=== PATIENT | male | born 1995 | race Caucasian/White ===

== ENCOUNTER → 2017-02-03 | Emergency (ER) | payer BC, OTHER ==
[~2017-02-03] VITALS: Ht 175.3 cm; Wt 117.9 kg
[~2017-02-03] MED LIST: TETANUS,DIPTH,PERTUSS P/F (BOOSTRIX) 0.5 ML VIAL IM STA
--- OUTSIDE RECORDS SUMMARY | 2017-02-03 20:31 | XMS REPORT ---
Author Author Juwan Haro [facility] Address [address] [place], [place] [id number] Care Team Providers Care Appeals Court Associate Justice Name Role Phone Juwan Haro PCP Unavailable Allergies and Adverse Reactions Name Reaction Notes NO KNOWN DRUG ALLERGIES Plan of Treatment Not available. Medications Active Name Start Date Estimated Completion Date SIG Comments Adderall XR 25 mg oral capsule,extended release 24hr 04/23/2015 05/23/2015 take 1 capsule (25 mg) by oral route once daily in the morning upon awakening for 30 days Name Start Date Expiration Date SIG Comments Ashley 180 mg oral tablet 05/13/2009 05/08/2010 take 1 tablet (180 mg) by oral route once daily for 30 days Zithromax Z-Guru 250 mg oral tablet 07/10/2010 07/20/2010 take 2 tablets (500 mg ) by oral route once daily for 1 day then 1 tablet (250 mg) by oral route once daily for 4 days Medrol (Guru) 4 mg oral tablets,dose pack 07/07/2011 07/19/2011 take as directed for 6 days Levaquin 500 mg oral tablet 07/07/2011 07/14/2011 take 1 tablet (500 mg) by oral route once daily for 7 days Lamisil 250 mg oral tablet 08/06/2011 08/20/2011 take 1 tablet by oral route daily for 14 days Bactrim DS 800-160 mg oral tablet 09/22/2012 09/29/2012 take 1 tablet by oral route 2 times a day for 7 days Discontinued Name Start Date Discontinued Date SIG Comments Ashley-D 12 Hour 60-120 mg oral tablet extended release 12 hr 05/13/20092009 take 1 tablet by oral route 2 times per day for 30 days Tessalon Perles 100 mg oral capsule 05/13/2009 05/13/2009 take 1 capsule (100 mg ) by oral route 3 times per day Rondec DM 4-45-15 mg/5 mL oral syrup 05/13/2009 10/31/2013 take 5 milliliters by oral route 4 times a day as needed Lotrisone 1-0.05 % topical cream 10/31/2013 apply to the affected and surrounding areas of skin by topical route 2 times per day in the morning and evening x 7days Problem List Description Status Onset Attention deficit disorder Active 04/20/2011 Vital Signs Date Time BP-Sys(mm[Hg] BP-Ermelinda(mm[Hg]) HR(bpm) RR(rpm) Temp WT HT HC BMI BSA BMI Percentile O2 Sat(%) 04/23/2015 4:09:00 PM 122 mmHg 88 mmHg 78 bpm 18 rpm 97.7 F 263 lbs 70.5 in 37.20 kg/m2 2.44 m2 97 % 11/26/2014 4:04:00 PM 110 mmHg 90 mmHg 57 bpm 20 rpm 97 F 269.2 lbs 70.5 in 38.0798 kg/m 2.4645 m 98 % 03/20/2014 8:50:00 AM 132 mmHg 64 mmHg 78 bpm 18 rpm 97.6 F 253.5 lbs 70.5 in 35.86 kg/m2 2.39 m2 0 % 99 % 10/31/2013 3:52:00 PM 128 mmHg 60 mmHg 78 bpm 18 rpm 98.2 F 251 lbs 70.5 in 35.5053 kg/m 2.3797 m 0 % 03/13/2013 10:55:00 AM 124 mmHg 82 mmHg 84 bpm 18 rpm 97.8 F 243 lbs 09/22/2012 4:02:00 PM 118 mmHg 74 mmHg 64 bpm 18 rpm 97.8 F 235 lbs 70.5 in 33.2421 kg/m 2.3026 m 98.1 % 04/26/2012 10:59:00 AM 110 mmHg 72 mmHg 68 bpm 18 rpm 97.4 F 226 lbs 70.5 in 31.97 kg/m2 2.26 m2 97.5 % 12/18/2011 8:42:00 AM 120 mmHg 72 mmHg 60 bpm 18 rpm 97.8 F 218 lbs 70.5 in 30.8373 kg/m 2.2178 m 96.9 % 07/07/2011 3:49:00 PM 118 mmHg 74 mmHg 82 bpm 18 rpm 98.8 F 217 lbs 69 in 32.04 kg/m2 2.19 m2 98 % 05/28/2011 4:05:00 PM 136 mmHg 84 mmHg 80 bpm 20 rpm 98.8 F 223 lbs 69 in 32.931 kg/m 2.2191 m 98.4 % 02/10/2011 3:44:00 PM 122 mmHg 70 mmHg 88 bpm 20 rpm 97.8 F 218 lbs 07/10/2010 3:46:00 PM 128 mmHg 74 mmHg 96 bpm 20 rpm 98.4 F 215 lbs 03/25/2010 3:37:00 PM 112 mmHg 70 mmHg 88 bpm 20 rpm 97 F 209 lbs 12/23/2009 9:43:00 AM 118 mmHg 68 mmHg 60 bpm 20 rpm 97 F 213 lbs 05/13/2009 10:23:00 AM 122 mmHg 80 mmHg 80 bpm 16 rpm 97.5 F 208.375 lbs 69 in 30.77 kg/m2 2.15 m2 98 % Social History Name Description Comments Single High school attendee Denies substance abuse Denies illicit substance abuse Active but no formal exercise Student Did not serve History of Procedures Date Ordered Description Order Status 12/18/2011 12:00 AM MENINGOCOCCAL VACCINE IM Reviewed Results Summary Not available. History Of Immunizations Name Date Admin Mfg Name Mfg Code Trade Name Lot# Route Inj Vis Given Vis Pub CVX Meningococcal 12/18/2011 sanofi pasteur PMC Menactra [id number] Intramuscular Left Deltoid 12/23/2011 02/20/2011 136 History of Past Illness Name Date of Onset Comments Rhinitis, Allergic May 13 2009 10:29AM Upper Respiratory Infections May 13 2009 10:29AM Attention Deficit Disorder Attention deficit disorder 04/20/2011 Attention Deficit Disorder Dec 23 2009 9:48AM Attention Deficit Disorder Mar 25 2010 3:40PM Bronchitis, Acute Jul 10 2010 3:49PM Attention Deficit Disorder Jul 10 2010 3:49PM Attention Deficit Disorder Feb 10 2011 3:43PM Atopic Dermatitis May 28 2011 4:08PM Upper Respiratory Infection Jul 07 2011 3:52PM Contact Dermatitis Jul 07 2011 3:52PM Atopic Dermatitis Aug 06 2011 1:48PM Attention Deficit Disorder Dec 18 2011 8:46AM Attention Deficit Disorder Apr 26 2012 11:02AM Ingrown Nail Sep 22 2012 4:05PM Attention Deficit Disorder Mar 13 2013 10:59AM Penile adhesion Oct 31 2013 3:56PM Attention deficit disorder Mar 20 2014 8:52AM Attention deficit disorder Nov 26 2014 4:07PM Attention deficit disorder Apr 23 2015 4:13PM Payers Insurance Name Company Name Plan Name Plan Number Policy Number Policy Group Number Start Date [employer] [place] [id number] Friday, 2005 History of Encounters Visit Date Visit Type Provider 04/23/2015 Office visit Juwan Haro MD 11/26/2014 Office visit Juwan Haro MD 03/20/2014 Office visit Juwan Haro MD 10/31/2013 Office visit Juwan Haro MD 03/13/2013 Office visit Juwan Haro MD 09/22/2012 Office visit Juwan Haro MD 04/26/2012 Office visit Juwan Haro MD 12/18/2011 Office visit Juwan Haro MD 08/06/2011 Office visit Juwan Haro MD 07/07/2011 Office visit Juwan Haro MD 05/28/2011 Office visit Juwan Haro MD 02/10/2011 Office visit Juwan Haro MD 07/10/2010 Office visit Juwan Haro MD 03/25/2010 Office visit Juwan Haro MD 12/23/2009 Office visit Juwan Haro MD 05/13/2009 Office visit Hoda Sellers MD 03/04/2009 Office visit Juwan Haro MD
--- OUTSIDE RECORDS SUMMARY | 2017-02-03 20:32 | XMS REPORT ---
Author Author Tadeo Katz [facility] Address [address] [place], [place] [id number] Care Team Providers Care Live Ammunition Inspector Name Role Phone Tadeo Katz PCP Allergies and Adverse Reactions Name Reaction Notes NO KNOWN DRUG ALLERGIES Plan of Treatment Not available. Medications Active Name Start Date Estimated Completion Date SIG Comments triamcinolone acetonide 0.5 % topical ointment 11/19/2015 apply a thin layer to the affected area(s) by topical route 2 times per day Name Start Date Expiration Date SIG Comments [...] 2 times a day for 7 days Adderall XR 25 mg oral capsule,extended release 24hr 08/23/2015 09/22/2015 take 1 capsule (25 mg) by oral route once daily in the morning upon awakening for 30 days Discontinued Name Start Date Discontinued Date SIG Comments Ashley-D 12 Hour 60-120 mg oral tablet extended release 12 hr 05/13/20092009 take 1 tablet by oral route 2 times per day for 30 days Tatyana Kimball 100 mg oral capsule 05/13/2009 05/13/2009 take 1 capsule (100 mg ) by oral route 3 times per day Praveendec DM 4-45-15 mg/5 mL oral syrup 05/13/2009 [...] HC BMI BSA BMI Percentile O2 Sat(%) 11/19/2015 5:14:00 PM 82 bpm 20 rpm 98.1 F 267 lbs 70.5 in 37.77 kg/m2 2.45 m2 98 % 04/23/2015 4:09:00 PM 122 mmHg 88 mmHg 78 bpm 18 rpm 97.7 F 263 lbs 70.5 in 37.2028 kg/m 2.436 m 97 % 11/26/2014 4:04:00 PM 110 mmHg 90 mmHg 57 bpm 20 rpm 97 F 269.2 lbs 70.5 in 38.08 kg/m2 2.46 m2 98 % 03/20/2014 8:50:00 AM 132 mmHg 64 mmHg 78 bpm 18 rpm 97.6 F 253.5 lbs 70.5 in 35.859 kg/m 2.3916 m 0 % 99 % 10/31/2013 3:52:00 PM 128 mmHg 60 mmHg 78 bpm 18 rpm 98.2 F 251 lbs 70.5 in 35.51 kg/m2 2.38 m2 0 % 03/13/2013 10:55:00 AM 124 mmHg 82 mmHg 84 bpm 18 rpm 97.8 F 243 lbs 09/22/2012 4:02:00 PM 118 mmHg 74 mmHg 64 bpm 18 rpm 97.8 F 235 lbs 70.5 in 33.24 kg/m2 2.30 m2 98.1 % 04/26/2012 10:59:00 AM 110 mmHg 72 mmHg 68 bpm 18 rpm 97.4 F 226 lbs 70.5 in 31.969 kg/m 2.2581 m 97.5 % 12/18/2011 8:42:00 AM 120 mmHg 72 mmHg 60 bpm 18 rpm 97.8 F 218 lbs 70.5 in 30.84 kg/m2 2.22 m2 96.9 % 07/07/2011 3:49:00 PM 118 mmHg 74 mmHg 82 bpm 18 rpm 98.8 F 217 lbs 69 in 32.045 kg/m 2.189 m 98 % 05/28/2011 4:05:00 PM 136 mmHg 84 mmHg 80 bpm 20 rpm 98.8 F 223 lbs 69 in 32.93 kg/m2 2.22 m2 98.4 % 02/10/2011 3:44:00 PM 122 mmHg [...] rpm 97.5 F 208.375 lbs 69 in 30.7713 kg/m 2.1451 m 98 % Social History Name Description Comments [...] CVX Meningococcal 12/18/2011 sanofi pasteur PMC Menactra [id number] Intramuscular Left Deltoid 12/23/2011 02/20/2011 136 History of Past Illness Name Date of Onset Comments Rhinitis, Allergic May 13 2009 10:29AM Upper Respiratory Infections May 13 2009 10:29AM Attention deficit disorder 04/20/2011 Attention Deficit Disorder [...] Attention deficit disorder Apr 23 2015 4:13PM Insect bites and stings, accidental or unintentional, initial encounter Nov 19 2015 5:16PM Payers Insurance Name Company Name Plan Name Plan Number Policy Number Policy Group Number Start Date BCBS [employer] [facility] [id number] Friday, 2005 History of Encounters Visit Date Visit Type Provider 11/19/2015 Office visit Tadeo Katz APRN 04/23/2015 Office visit Juwan Haro MD 11/26/2014 [...]
--- OUTSIDE RECORDS SUMMARY | 2017-02-03 20:32 | XMS REPORT ---
Author Author Juwan Haro [facility] Address [address] [place], [place] [id number] Care Team Providers Care Fluid Dynamicist Name Role Phone Juwan Haro PCP Unavailable Allergies and Adverse Reactions Name Reaction Notes NO KNOWN DRUG ALLERGIES Plan of Treatment Not available. Medications Active Name Start Date Estimated Completion Date SIG Comments triamcinolone acetonide 0.5 % topical ointment 11/19/2015 apply a thin layer to the affected area(s) by topical route 2 times per day amoxicillin 875 mg oral tablet 12/23/2015 12/30/2015 take 1 tablet (875 mg) by oral route every 12 hours for 7 days Medrol (Guru) 4 mg oral tablets,dose pack 12/23/2015 01/04/2016 take as directed for 6 days Adderall XR 25 mg oral capsule,extended release 24hr 12/23/2015 01/22/2016 take 1 capsule (25 mg) by oral [...] times per day for 30 days Tatyana Perles 100 mg oral capsule 05/13/2009 05/13/2009 [...] HC BMI BSA BMI Percentile O2 Sat(%) 12/23/2015 8:25:00 AM 130 mmHg 78 mmHg 74 bpm 18 rpm 96.6 F 257 lbs 70.5 in 36.35 kg/m2 2.41 m2 98 % 11/19/2015 5:14:00 PM 82 bpm 20 rpm 98.1 F 267 lbs 70.5 in 37.7686 kg/m 2.4544 m 98 % 04/23/2015 4:09:00 PM 122 mmHg [...] CVX Meningococcal 12/18/2011 sanofi pasteur PMC Menactra [id number] Intramuscular Left Deltoid 12/23/2011 02/20/2011 136 History [...] unintentional, initial encounter Nov 19 2015 5:16PM Atopic dermatitis Dec 23 2015 8:32AM Attention deficit disorder Dec 23 2015 8:32AM Payers Insurance Name Company Name Plan Name Plan Number Policy Number Policy Group Number Start Date BCBS [facility] [id number] Friday, 2005 History of Encounters Visit Date Visit Type Provider 12/23/2015 Office visit Juwan Haro MD 11/19/2015 Office visit Tadeo Katz APRN 04/23/2015 [...]
--- OUTSIDE RECORDS SUMMARY | 2017-02-03 20:32 | XMS REPORT | Continuity of Care Document ---
Author Author [facility] Address Unknown Phone Unavailable Allergies Medications Problems Procedures Results Encounters ACCT No. Visit Date/Time Discharge Status Pt. Type Provider Facility Loc./Unit Complaint [id number] 12/23/2015 09:25:00 12/23/2015 23: 59:59 [facility] Out[facility] Juwan Haro [id number] 11/19/2015 18:05:20 11/19/2015 23: 59:59 [facility] Outpatient Tadeo Katz [id number] 04/23/2015 16:20:06 04/23/2015 23: 59:59 [facility] Out[facility] Juwan Haro [id number] 12/17/2014 22:19:28 12/17/2014 23: 59:59 [facility] Out[facility] Juwan Haro [id number] 03/20/2014 09:47:41 03/20/2014 23: 59:59 [facility] Out[facility] Juwan Haro [id number] 10/31/2013 16:34:03 10/31/2013 23: 59:59 Juwan Shaw
[2017-02-03 20:57] VITALS: BP 155/84
--- NOTE | 2017-02-03 21:58 | ED General ---
General Chief Complaint: Laceration Stated Complaint: FINGER LAC Nursing Triage Note: Pt reports cutting finger with box knife at work this evening Nursing Sepsis Screen: No Definite Risk Source of Information: Patient, Other (girlfriend) Exam Limitations: No Limitations History of Present Illness Time Seen by Provider: 21:42 Initial Comments 21-year-old male patient presents to the emergency department with complaints of laceration to the right second finger. Patient was using a box knife while at work. Timing/Duration: Other (1700 tonight.) Modifying Factors: worse with Other (worse with palpation) Allergies and Home Medications Allergies Coded Allergies: No Known Drug Allergies (Unverified , 02/03/17) Home Medications No Active Prescriptions or Reported Meds Constitutional: no symptoms reported Musculoskeletal: see HPI, other (right second finger pain at the laceration site) Skin: see HPI Psychiatric/Neurological: Denies Numbness, Denies Paresthesia, Denies Tingling , Denies Weakness All Other Systems Reviewed Negative Unless Noted: Yes (Negative excepted noted.) Past Loqgrnc-Ovrqej-Lxurvt Hx Patient Social History Alcohol Use: Regular Use Number of Drinks Today: 0 Alcohol Beverage of Choice: Beer, Whiskey Recreational Drug Use: Yes Drug of Choice: Marjiuana Smoking Status: Never a Smoker 2nd Hand Smoke Exposure: No Recent Foreign Travel: No Contact w/Someone Who Travel: No Recent Infectious Disease Expo: No Immunizations Up To Date Tetanus Booster (TDap): Unknown PED Vaccines UTD: No Respiratory History of Respiratory Disorde: No Cardiovascular History of Cardiac Disorders: No Neurological History of Neurological Disord: No Gastrointestinal History of Gastrointestinal Di: No Musculoskeletal History of Musculoskeletal Dis: No Endocrine History of Endocrine Disorders: No Integumentary History of Skin or Integumenta: No Reviewed Nursing Assessment Reviewed/Agree w Nursing PMH: Yes Family Medical History Significant Family History: No Pertinent Family Hx Physical Exam Vital Signs Vital Sign - Last 12Hours 02/03/17 20:57 Temp 96.4 Pulse 84 Resp 18 B/P (MAP) 155/84 Pulse Ox 97 O2 Delivery Room Air Capillary Refill : Less Than 3 Seconds General Appearance: No Apparent Distress, WD/WN Cardiovascular: Normal Peripheral Pulses Extremity: Normal Capillary Refill, Normal Range of Motion, Other (1.5 cm superficial linear laceration of the right posterior index finger (see images). Soft tissue tenderness noted.) Neurologic/Psychiatric: Alert, Oriented x3, No Motor/Sensory Deficits, Normal Mood/Affect Skin: Normal Color, Warm/Dry, Other (1.5 cm superficial linear laceration of the right posterior index finger (see images). Soft tissue tenderness noted.) Laceration Repair : Wound Location: Other (right second finger) Wound Length (cm): 1.5 Wound's Depth, Shape: superficial Wound Explored: clean Betadine Prep?: No (wound scrubbed with chlorhexidine and sterile saline) Other Closure Supply: Steri Strip 05/13", Mastisol Progress Blood loss minimal. Patient tolerated the procedure well. Finger splint applied to the right second finger. Progress/Results/Core Measures Results/Orders My Orders Orders - NINA ROSENBERG Tdap (Boostrix) Im (02/03/17 21:51) Vital Signs/I&O Vital Sign - Last 12Hours 02/03/17 20:57 Temp 96.4 Pulse 84 Resp 18 B/P (MAP) 155/84 Pulse Ox 97 O2 Delivery Room Air Blood Pressure Mean: 107 Departure Impression Impression: Primary Impression: Laceration of finger, index Qualified Codes: S61.210A - Laceration without foreign body of right index finger without damage to nail, initial encounter Disposition: 01 HOME, SELF-CARE Condition: Improved Departure-Patient Inst. Decision time for Depature: 21:57 Referrals: NO,LOCAL PHYSICIAN (PCP) Primary Care Physician Patient Instructions: Wound Care (DC) Add. Discharge Instructions: All discharge instructions reviewed with patient and/or family. Voiced understanding. Tylenol extra strength [id number] as directed for pain. Ibuprofen 800 mg by mouth every 8 hours as needed for pain. Tomorrow morning you may remove the splint and shower with antibacterial soap. Pat dry and reapply splint. Ice pack for 20 minute intervals as needed for pain. Follow- up with your family practitioner if needed. Return to the emergency department for worsened pain, redness, fever, drainage, or any other concerns. Scripts No Active Prescriptions or Reported Meds NINA ROSENBERG Feb 03, 2017 21:58
== END | disposition home or self-care (01) ==
LOC: ER 20:28
DX: S61.210A Laceration without foreign body of right index finger without damage to nail, initial encounter (principal); F12.10 Cannabis abuse, uncomplicated; Z23 Encounter for immunization; W26.0XXA Contact with knife, initial encounter
CPT/HCPCS: 12001; 90471; 90715